=== PATIENT | female | born 1990 | race African-American/Black ===

== ENCOUNTER 2017-12-03 18:15 | Emergency (ER) | payer SELFPAY, OTHER ==
[2017-12-03] MEDS: LIDOCAINE WITH 8.4% SOD BICARB 3 ML DISP.SYRIN. INJ (18:42)
== END 2017-12-03 18:26 | disposition home or self-care (01) ==
LOC: ER 18:15
DX: S01.112A Laceration without foreign body of left eyelid and periocular area, initial encounter (principal); W01.190A Fall on same level from slipping, tripping and stumbling with subsequent striking against furniture, initial encounter; Y93.41 Activity, dancing; Y92.89 Other specified places as the place of occurrence of the external cause; Y99.8 Other external cause status
CPT/HCPCS: 12011; 99284